=== PATIENT | male | born 1950 | race Caucasian/White ===

== ENCOUNTER 2017-05-01 10:37 | Emergency (ER) | payer OTHER ==
--- NOTE | 2017-05-01 12:31 | ED NURSING NOTES ---
Clinical Report - Nurses [facility] [address] [place] [address] 05/01/2017 10:38 Patient: IJEOMA ALMARAZ TRIAGE Triage time 1042. Acuity: LEVEL 4. Chief Complaint: DOG BITE. --10:49 Karla Alcocer R.N. 10:43 05/01/17. BP: 131/78. HR: 77. RR: 18. O2 saturation: 99%. Temp: 97.9 F. Pain level now: 01/28. --10:49 Karla Alcocer R.N. Weight: 77.1 kg stated. Height/Length: 69 inches Per Patient. BMI: 25.1. --10:45 Karla Alcocer R.N. Medications OxyCODONE HCl Oral 40 mg, 3x a day. Percocet Oral (Tablet 10-325 mg) 1 tablet, 4x a day. Valium Oral (Tablet 5 mg) 1 tablet, 3x a day. --10:46 Karla Alcocer R.N. Gabapentin Oral 100 mg, as needed (for breakthru pain). --10:47 Karla Alcocer R.N. Allergies Tetracycline. --10:46 Karla Alcocer R.N. History Arrived by private vehicle. Historian: patient. Accompanied by friend. 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 Location of injuries: dorsal left hand. This occurred last night (1999). SOCIAL HX: Former smoker- less than 1/2 a pack per day. Occasional alcohol use. History of drug use: marijuana. --10:49 Karla Alcocer R.N. PROBLEMS: Pneumonia. Back Pain. --10:46 Karla Alcocer R.N. ADDITIONAL SURGERIES: Appendectomy. Back Surgery. Knee Surgery. --10:46 Karla Alcocer R.N. Interventions ID band on patient. To treatment room. --10:49 Karla Alcocer R.N. PHYSICAL ASSESSMENT 10:42. Ambulatory to room. GENERAL / NEURO / PSYCH: Alert. Oriented X 4. Appears in no acute distress. HEENT: Head non-tender. RESPIRATORY: Respirations not labored. CVS: Capillary refill less than 2 seconds. GI / : Abdomen soft. EXTREMITIES: Left hand: puncture wound and subcutaneous 4.0 cm laceration with controlled bleeding (4cm SQ lac to dorsal surface of left hand over mid metacarpal area, and 1 PW on negron surface at base of index finger). SKIN: Skin is warm and dry. --10:52 Karla Alcocer R.N. NURSING PROGRESS NOTES 10:42. Reassurance given. Patient identifiers checked. Call light placed in reach. Side rails up. Bed placed in lowest position. Patient ready for evaluation- chart flagged. --10:50 Karla Alcocre R.N. 11:05. ( hand soaked in NS and betadine per ERMD). --11:17 Karla Alcocer R.N. 11:35. ( hand taken out of soak, light dressing applied, so pt can ambulate to bathroom.). --11:38 Karla Alcocer R.N. 12:50 05/01/2017 Augmentin (Amoxicillin-Pot Clavulanate) PO Tablets 875 mg given. Allergies verified and confirmed 5 rights. --12:56 Karla Alcocer R.N. 12:15. WOUND REPAIR: Wound repair performed by STEVE. Assisted by [facility] tech. The wound is linear. Preparation: suture tray set-up with lidocaine. Wound cleansed per STEVE with sterile saline and irrigated per STEVE with sterile saline using a syringe. Procedure: wound repaired with sutures. Post-procedure: he was stable, bleeding controlled, neuro-vascular status intact distal to wound and dressing applied. Total time of assist / procedure: 15 minutes. --12:57 Karla Alcocer R.N. 12:45. Applied clean dressing consisting of 4x4 gauze, following the application of antibiotic ointment. Secured with tape and cinda (placed by DEDRICK Otero). --12:58 Karla Alcocer R.N. DISPOSITION / DISCHARGE Condition at departure: improved and stable. No learning barriers present. Discharge instructions provided and reviewed with the patient and spouse. Reviewed medication(s) (augmentin). Reviewed wound care instructions. Patient and family verbalized understanding. Written instructions provided in Turkmen. The patient was discharged home and accompanied by daughter. He left the Emergency Department ambulatory and via private vehicle. Driving (daughter). --12:52 Karla Alcocer R.N. 12:50 05/01/17. BP: 110/67. HR: 84. RR: 20. O2 saturation: 97%. Temp: deferred. Pain level now: 01/28. --12:52 Karla Alcocer R.N. Locked/Released at 05/01/2017 12:58 by Karla Alcocer R.N.
--- NOTE | 2017-05-01 12:31 | ED ORDER SUMMARY ---
..... Patient: IJEOMA ALMARAZ OrderSheet [facility] VisitID: [id number] [place] [address] 67y, M Registration Date/Time: 05/01/2017 ORDER SHEET Weight: 77.1 kg (stated) Allergies: Tetracycline GENERAL ORDERS: MEDICATION ORDERS: Augmentin PO 875 mg (NOW) (12:28 05/01/2017 Nico Dueñas) (12:56 Greta Kaplan) IV FLUIDS: ORDER SHEET NOTES: [Electronically signed by Karla Alcocer R.N. (12:58 05/01/2017)] [Electronically signed by Evelyn Donis P.A.-C (13:06 05/01/2017)] [Electronically locked/signed by Karla Alcocer R.N. (12:58 05/01/2017)]
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
--- NOTE | 2017-05-01 12:31 | ED NURSING NOTES ---
Clinical Report - Nurses [facility] [address] [place] [address] 05/01/2017 10:38 Patient: IJEOMA ALMARAZ TRIAGE Triage time 1042. Acuity: LEVEL 4. Chief Complaint: DOG BITE. --10:49 Karla Alcocer R.N. 10:43 05/01/17. BP: 131/78. HR: 77. RR: 18. O2 saturation: 99%. Temp: 97.9 F. Pain level now: 01/28. --10:49 Karla Alcocer R.N. Weight: 77.1 kg stated. Height/Length: 69 inches Per Patient. BMI: 25.1. --10:45 Karla Alcocer R.N. Medications OxyCODONE HCl Oral 40 mg, 3x a day. Percocet Oral (Tablet 10-325 mg) 1 tablet, 4x a day. Valium Oral (Tablet 5 mg) 1 tablet, 3x a day. --10:46 Karla Alcocer R.N. Gabapentin Oral 100 mg, as needed (for breakthru pain). --10:47 Karla Alcocer R.N. Allergies Tetracycline. --10:46 Karla Alcocer R.N. History Arrived by private vehicle. Historian: patient. Accompanied by friend. 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 Location of injuries: dorsal left hand. This occurred last night (1999). SOCIAL HX: Former smoker- less than 1/2 a pack per day. Occasional alcohol use. History of drug use: marijuana. --10:49 Karla Alcocer R.N. PROBLEMS: Pneumonia. Back Pain. --10:46 Karla Alcocer R.N. ADDITIONAL SURGERIES: Appendectomy. Back Surgery. Knee Surgery. --10:46 Karla Alcocer R.N. Interventions ID band on patient. To treatment room. --10:49 Karla Alcocer R.N. PHYSICAL ASSESSMENT 10:42. Ambulatory to room. GENERAL / NEURO / PSYCH: Alert. Oriented X 4. Appears in no acute distress. HEENT: Head non-tender. RESPIRATORY: Respirations not labored. CVS: Capillary refill less than 2 seconds. GI / : Abdomen soft. EXTREMITIES: Left hand: puncture wound and subcutaneous 4.0 cm laceration with controlled bleeding (4cm SQ lac to dorsal surface of left hand over mid metacarpal area, and 1 PW on negron surface at base of index finger). SKIN: Skin is warm and dry. --10:52 Karla Alcocer R.N. NURSING PROGRESS NOTES 10:42. Reassurance given. Patient identifiers checked. Call light placed in reach. Side rails up. Bed placed in lowest position. Patient ready for evaluation- chart flagged. --10:50 Karla Alcocer R.N. 11:05. ( hand soaked in NS and betadine per ERMD). --11:17 Karla Alcocer R.N. 11:35. ( hand taken out of soak, light dressing applied, so pt can ambulate to bathroom.). --11:38 Karla Alcocer R.N. 12:50 05/01/2017 Augmentin (Amoxicillin-Pot Clavulanate) PO Tablets 875 mg given. Allergies verified and confirmed 5 rights. --12:56 Karla Alcocer R.N. 12:15. WOUND REPAIR: Wound repair performed by STEVE. Assisted by [facility] tech. The wound is linear. Preparation: suture tray set-up with lidocaine. Wound cleansed per STEVE with sterile saline and irrigated per STEVE with sterile saline using a syringe. Procedure: wound repaired with sutures. Post-procedure: he was stable, bleeding controlled, neuro-vascular status intact distal to wound and dressing applied. Total time of assist / procedure: 15 minutes. --12:57 Karla Alcocer R.N. 12:45. Applied clean dressing consisting of 4x4 gauze, following the application of antibiotic ointment. Secured with tape and cinda (placed by DEDRICK Otero). --12:58 Karla Alcocer R.N. DISPOSITION / DISCHARGE Condition at departure: improved and stable. No learning barriers present. Discharge instructions provided and reviewed with the patient and spouse. Reviewed medication(s) (augmentin). Reviewed wound care instructions. Patient and family verbalized understanding. Written instructions provided in Frisian. The patient was discharged home and accompanied by daughter. He left the Emergency Department ambulatory and via private vehicle. Driving (daughter). --12:52 Karla Alcocer R.N. 12:50 05/01/17. BP: 110/67. HR: 84. RR: 20. O2 saturation: 97%. Temp: deferred. Pain level now: 01/28. --12:52 Karla Alcocer R.N. Locked/Released at 05/01/2017 12:58 by Karla Alcocer R.N.
--- NOTE | 2017-05-01 12:31 | ED ORDER SUMMARY ---
..... Patient: IJEOMA ALMARAZ OrderSheet [facility] VisitID: [id number] [place] [address] 67y, M Registration Date/Time: 05/01/2017 ORDER SHEET Weight: 77.1 kg (stated) Allergies: Tetracycline GENERAL ORDERS: MEDICATION ORDERS: Augmentin PO 875 mg (NOW) (12:28 05/01/2017 Nico Dueñas) (12:56 Greta Kaplan) IV FLUIDS: ORDER SHEET NOTES: [Electronically signed by Karla Alcocer R.N. (12:58 05/01/2017)] [Electronically signed by Evelyn Donis P.A.-C (13:06 05/01/2017)] [Electronically locked/signed by Karla Alcocer R.N. (12:58 05/01/2017)]
--- NOTE | 2017-05-01 13:07 | ED MED RECONCILIATION SUMMARY ---
Patient: IJEOMA ALMARAZ Medication Reconciliation Report [facility] VisitID: [id number] [place] [address] 67y, M Registration Date/Time: 05/01/2017 Weight: 77.1 kg Height/Length: 69 in. BMI: 25.1 ALLERGIES: Tetracycline The patient's Home Medications are listed below: THE FOLLOWING MEDICATIONS NEED TO BE RECONCILED: Gabapentin Oral 100 mg, for breakthru pain OxyCODONE HCl Oral 40 mg, 3x a day Percocet Oral (10-325 mg) 1 tablet, 4x a day Valium Oral (5 mg) 1 tablet, 3x a day The source(s) of the original Home Medication information: Not obtained. The following Medications were given to the patient in the Emergency Department: Augmentin [PO] PO 875 mg, administered: 05/01/2017 12:50:00 PM The following Medications were prescribed to the patient: Augmentin 875 mg: take 1 tablet orally every 12 hours for 7 days. Dispense fourteen (14). No refills. Substitution is permissible. -- Evelyn Donis P.A.-C
--- NOTE | 2017-05-01 13:07 | ED DISCHARGE INSTRUCTIONS ---
Patient: IJEOMA ALMARAZ General Instructions [facility] VisitID: [id number] [place] [address] 67y, M Registration Date/Time: 05/01/2017 Deep dog bite to the left hand. INSTRUCTIONS Protect wound and keep wound area clean. Apply bacitracin twice daily. Sutures/carlos should be removed in six days. (11 sutures). Prescription Medications: Augmentin 875 mg: take 1 tablet orally every 12 hours for 7 days. Dispense fourteen (14). No refills. Substitution is permissible. Follow-up: Follow up with your doctor Tuesday. ADDITIONAL INFORMATION Dog Bite If a dog has bitten you and the wound is deep enough to break the skin, an infection may occur. Therefore, you should watch for the warning signs listed below. The doctor may not close the wound completely. This is to allow fluid to drain in the event of an infection. Home Care Watch the wound for signs of infection listed below. In certain types of bites, antibiotics may be prescribed. Begin taking these as soon as possible, as directed until they are all gone. Rabies Prevention If you live in an area where rabies occurs in wild animals, the rabies virus can be passed to cats and dogs. An infected animal can pass the rabies virus to you during a bite. If ahealthy-looking pet dog has bitten you, it should be kept in a secure area for the next 10 days to watch for signs of illness. If the pet licensed insurance sales agent wont cooperate with you, contact the [facility] animal control department (or local law enforcement). If the animal becomes ill or dies [id number] days, contact your animal control department at once. The animal must be tested for rabies. If the animal stays healthy for the next 10 days, then there is no danger of rabies in the dog or you. Pets fully vaccinated against rabies (2 shots) are at very low risk for the infection. However, because human rabies is almost always fatal, any biting dog should be kept in confinement for 10 days as an extra precaution. If a stray dog bit you, contact the animal control department. They can provide information on capture, quarantine, and animal rabies testing. If you are unable to locate the animal that bit you in the next 2days, and if rabies exists in your region, you must be evaluated for the rabies vaccine series. Contact your doctor or return here promptly. All animal bites should be reported to the [facility] animal control department. If you were not given a form to fill out, you can report it yourself by calling. Follow Up with your doctor as advised. Most skin wounds heal within 10 days. However, an infection may occur even with proper treatment. Check your woundevery 6 hoursfor 2 days, then at least once a day for the next two days for the signs of infection listed below. Get Prompt Medical Attention if any of the following occur: Signs of infection: Spreading redness Increased pain or swelling Fever of 100.4F (38C) or higher, or as directed by your healthcare provider Colored fluid or pus draining from the wound Headache, confusion, strange behavior, or a seizure (signs of a rabies infection) Laceration, Extremity (Sutures, Carlos, Or Tape) A laceration is a cut through the skin. This will usually require stitches (sutures) or carlos if it is deep. Minor cuts may be treated with surgical tape closures. Home care The following guidelines will help you care for your laceration at home: Keep the wound clean and dry. If a bandage was applied and it becomes wet or dirty, replace it. Otherwise, leave it in place for the first 24 hours, then change it once a day or as directed. If stitches or carlos were used, clean the wound daily: After removing the bandage, wash the area with soap and water. Use a wet cotton swab to loosen and remove any blood or crust that forms. After cleaning, keep the wound clean and dry. Talk with your doctor before applying any antibiotic ointment to the wound. Reapply the bandage. You may remove the bandage to shower as usual after the first 24 hours, but do not soak the area in water (no swimming) until the stitches or carlos are removed. If surgical tape closures were used, keep the area clean and dry. If it becomes wet, blot it dry with a towel. The doctor may prescribe an antibiotic cream or ointment to prevent infection. Do not stop taking this medication until you have finished the prescribed course or the doctor tells you to stop. The doctor may also prescribe medications for pain. Follow the doctors instructions for taking these medications. If you have chronic liver or kidney disease or ever had a stomach ulcer or GI bleeding, talk with your doctor before using these medicines. Follow-up care Follow up with your health care provider. Most skin wounds heal within ten days. However, an infection may sometimes occur despite proper treatment. Therefore, check the wound daily for the signs of infection listed below. Stitches and carlos should be removed within 714 days. If surgical tape closures were used, you may remove them after 10 days, if they have not fallen off by then. Notify your doctor if you notice persistent numbness or weakness in the injured extremity. (Note:A radiologist will review any X-rays that were taken. We will notify you of any new findings that may affect your care.) When to seek medical care Get prompt medical attention if any of these occur: Increasing pain in the wound Redness, swelling, or pus coming from the wound Fever of 100.4F (38C) or higher, or as directed by your health care provider If stitches or carlos come apart or fall out before your next appointment If the surgical tape closures fall off within seven days, or the wound edges re-open Bleeding not controlled by direct pressure You have been given the following additional information: Dog Bite Laceration, Extrem (Suture, Staple, Or Tape) (Electronically signed by Evelyn Donis P.A.-C 05/01/2017 13:06)
--- NOTE | 2017-05-01 13:07 | ED MAR SUMMARY ---
..... Medication Administration Record [facility] [address] [place] [address] Patient: IJEOMA ALMARAZ Visit ID: [id number] 67y, M Weight: 77.1 kg Height/Length: 69 in BMI: 25.1 ALLERGIES: Tetracycline Given 12:50 05/01/2017 Leodan, Rosaura Acosta Medication Administered: AUGMENTIN [PO] (AMOXICILLIN-POT CLAVULANATE), Dose: 875 mg Tablets PO. Medication Ordered: Augmentin PO 875 mg (NOW).
--- NOTE | 2017-05-01 13:07 | ED MED RECONCILIATION SUMMARY ---
Patient: IJEOMA ALMARAZ Medication Reconciliation Report [facility] VisitID: [id number] [place] [address] 67y, M Registration Date/Time: 05/01/2017 Weight: 77.1 kg Height/Length: 69 in. BMI: 25.1 ALLERGIES: Tetracycline The patient's Home Medications are listed below: THE FOLLOWING MEDICATIONS NEED TO BE RECONCILED: Gabapentin Oral 100 mg, for breakthru pain OxyCODONE HCl Oral 40 mg, 3x a day Percocet Oral (10-325 mg) 1 tablet, 4x a day Valium Oral (5 mg) 1 tablet, 3x a day The source(s) of the original Home Medication information: Not obtained. The following Medications were given to the patient in the Emergency Department: Augmentin [PO] PO 875 mg, administered: 05/01/2017 12:50:00 PM The following Medications were prescribed to the patient: Augmentin 875 mg: take 1 tablet orally every 12 hours for 7 days. Dispense fourteen (14). No refills. Substitution is permissible. -- Evelyn Donis P.A.-C
--- NOTE | 2017-05-01 13:07 | ED MAR SUMMARY ---
..... Medication Administration Record [facility] [address] [place] [address] Patient: IJEOMA ALMARAZ Visit ID: [id number] 67y, M Weight: 77.1 kg Height/Length: 69 in BMI: 25.1 ALLERGIES: Tetracycline Given 12:50 05/01/2017 Leodan, Rosaura Acosta Medication Administered: AUGMENTIN [PO] (AMOXICILLIN-POT CLAVULANATE), Dose: 875 mg Tablets PO. Medication Ordered: Augmentin PO 875 mg (NOW).
--- NOTE | 2017-05-01 13:07 | ED DISCHARGE INSTRUCTIONS ---
Patient: IJEOMA ALMARAZ General Instructions [facility] VisitID: [id number] [place] [address] 67y, M Registration Date/Time: 05/01/2017 Deep dog bite to the left hand. INSTRUCTIONS Protect wound and keep wound area clean. Apply bacitracin twice daily. Sutures/carlos should be removed in six days. (11 sutures). Prescription Medications: Augmentin 875 mg: take 1 tablet orally every 12 hours for 7 days. Dispense fourteen (14). No refills. Substitution is permissible. Follow-up: Follow up with your doctor Tuesday. ADDITIONAL INFORMATION Dog Bite If a dog has bitten you and the wound is deep enough to break the skin, an infection may occur. Therefore, you should watch for the warning signs listed below. The doctor may not close the wound completely. This is to allow fluid to drain in the event of an infection. Home Care Watch the wound for signs of infection listed below. In certain types of bites, antibiotics may be prescribed. Begin taking these as soon as possible, as directed until they are all gone. Rabies Prevention If you live in an area where rabies occurs in wild animals, the rabies virus can be passed to cats and dogs. An infected animal can pass the rabies virus to you during a bite. If ahealthy-looking pet dog has bitten you, it should be kept in a secure area for the next 10 days to watch for signs of illness. If the pet professor of music wont cooperate with you, contact the [facility] animal control department (or local law enforcement). If the animal becomes ill or dies days, contact your animal control department at once. The animal must be tested for rabies. If the animal stays healthy for the next 10 days, then there is no danger of rabies in the dog or you. Pets fully vaccinated against rabies (2 shots) are at very low risk for the infection. However, because human rabies is almost always fatal, any biting dog should be kept in confinement for 10 days as an extra precaution. If a stray dog bit you, contact the animal control department. They can provide information on capture, quarantine, and animal rabies testing. If you are unable to locate the animal that bit you in the next 2days, and if rabies exists in your region, you must be evaluated for the rabies vaccine series. Contact your doctor or return here promptly. All animal bites should be reported to the [facility] animal control department. If you were not given a form to fill out, you can report it yourself by calling. Follow Up with your doctor as advised. Most skin wounds heal within 10 days. However, an infection may occur even with proper treatment. Check your woundevery 6 hoursfor 2 days, then at least once a day for the next two days for the signs of infection listed below. Get Prompt Medical Attention if any of the following occur: Signs of infection: Spreading redness Increased pain or swelling Fever of 100.4F (38C) or higher, or as directed by your healthcare provider Colored fluid or pus draining from the wound Headache, confusion, strange behavior, or a seizure (signs of a rabies infection) Laceration, Extremity (Sutures, Carlos, Or Tape) A laceration is a cut through the skin. This will usually require stitches (sutures) or carlos if it is deep. Minor cuts may be treated with surgical tape closures. Home care The following guidelines will help you care for your laceration at home: Keep the wound clean and dry. If a bandage was applied and it becomes wet or dirty, replace it. Otherwise, leave it in place for the first 24 hours, then change it once a day or as directed. If stitches or carlos were used, clean the wound daily: After removing the bandage, wash the area with soap and water. Use a wet cotton swab to loosen and remove any blood or crust that forms. After cleaning, keep the wound clean and dry. Talk with your doctor before applying any antibiotic ointment to the wound. Reapply the bandage. You may remove the bandage to shower as usual after the first 24 hours, but do not soak the area in water (no swimming) until the stitches or carlos are removed. If surgical tape closures were used, keep the area clean and dry. If it becomes wet, blot it dry with a towel. The doctor may prescribe an antibiotic cream or ointment to prevent infection. Do not stop taking this medication until you have finished the prescribed course or the doctor tells you to stop. The doctor may also prescribe medications for pain. Follow the doctors instructions for taking these medications. If you have chronic liver or kidney disease or ever had a stomach ulcer or GI bleeding, talk with your doctor before using these medicines. Follow-up care Follow up with your health care provider. Most skin wounds heal within ten days. However, an infection may sometimes occur despite proper treatment. Therefore, check the wound daily for the signs of infection listed below. Stitches and carlos should be removed within 714 days. If surgical tape closures were used, you may remove them after 10 days, if they have not fallen off by then. Notify your doctor if you notice persistent numbness or weakness in the injured extremity. (Note:A radiologist will review any X-rays that were taken. We will notify you of any new findings that may affect your care.) When to seek medical care Get prompt medical attention if any of these occur: Increasing pain in the wound Redness, swelling, or pus coming from the wound Fever of 100.4F (38C) or higher, or as directed by your health care provider If stitches or carlos come apart or fall out before your next appointment If the surgical tape closures fall off within seven days, or the wound edges re-open Bleeding not controlled by direct pressure You have been given the following additional information: Dog Bite Laceration, Extrem (Suture, Staple, Or Tape) (Electronically signed by Evelyn Donis P.A.-C 05/01/2017 13:06)
== END 2017-05-01 12:55 | disposition home or self-care (01) ==
LOC: ED SRH 10:37
DX: S61.452A Open bite of left hand, initial encounter (principal); W54.0XXA Bitten by dog, initial encounter; Y93.9 Activity, unspecified; Y92.410 Unspecified street and highway as the place of occurrence of the external cause; Y99.9 Unspecified external cause status; Z87.891 Personal history of nicotine dependence; Z88.1 Allergy status to other antibiotic agents